=== PATIENT | male | born 1990 | race Caucasian/White ===

== ENCOUNTER 2016-05-19 13:08 | Emergency (ER) | payer OTHER | END 2016-05-19 15:46 | disposition home or self-care (01) | LOC: FER 13:08 | DX: S63.502A Unspecified sprain of left wrist, initial encounter (principal); F17.210 Nicotine dependence, cigarettes, uncomplicated; Z88.0 Allergy status to penicillin | CPT/HCPCS: 73110; 99283 ==

== ENCOUNTER 2021-06-08 12:15 | Emergency (ER) | payer OTHER ==
[~2021-06-08 12:15] MED LIST: FLEXERIL10 MG PO; IBUPROFEN800 MG PO; PREDNISONE 20MG20 MG PO; VENTOLIN HFA IN18 GM INH
[2021-06-08] MEDS ORDERED: MOBIC7.5 MG PO (15:35)
== END 2021-06-08 15:54 | disposition home or self-care (01) ==
LOC: FER 12:15
DX: S39.012A Strain of muscle, fascia and tendon of lower back, initial encounter (principal); E11.9 Type 2 diabetes mellitus without complications; Z88.0 Allergy status to penicillin; W17.89XA Other fall from one level to another, initial encounter; Y92.812 Truck as the place of occurrence of the external cause; Z28.310 Unvaccinated for COVID-19
CPT/HCPCS: 72131; 73502